=== PATIENT | female | born 1990 | race Hispanic/Latino ===

== ENCOUNTER 2018-03-09 17:29 | Emergency (ER) | payer OTHER ==
[~2018-03-09] VITALS: Ht 152.4 cm; Wt 68.0 kg
[~2018-03-09 17:29] MED LIST: KEPPRA500 MG PO; LAMICTAL25 MG PO; Z.0.ZONEGRAN100 MG PO
--- OUTSIDE RECORDS SUMMARY | 2018-03-09 17:32 | XMS REPORT ---
Author Author [facility] Address Unknown Phone Unavailable Care Team Providers Care Principal Java Developer Name Role Phone Unavailable Unavailable Payers Payer Name Policy Type Policy Number Effective Date Expiration Date Problems This patient has no known problems. Allergies, Adverse Reactions, Alerts Allergy Name Allergy Type Status Severity Reaction(s) Onset Date Inactive Date Treating Clinician Comments Penicillins DA Active SV 2018-03-09 00:00:00 Penicillins DA Active SV 2017-04-16 00:00:00 Medications This patient has no known medications.
--- OUTSIDE RECORDS SUMMARY | 2018-03-09 17:32 | XMS REPORT | Continuity of Care Document ---
Author Author [facility] Interface Address Unknown Phone Unavailable Problems Problem Status Onset Date Classification Date Reported Comments Source M54.5 - LOW BACK PAIN Active 12/19/2014 JERONIMO Faulkner Medications Medication Details Route Status Patient Instructions Ordering Provider Order Date Source Allergies, Adverse Reactions, Alerts Substance Category Reaction Severity Reaction type Status Date Reported Comments Source Immunizations Immunization Date Given Site Status Last Updated Comments Source Results Order Name Results Value Reference Range Date Interpretation Comments Source Spine lumbar 2 or 3 views DX Spine lumbar 2 or 3 views DX EXAM: Spine lumbar AP lateral HISTORY: M54.5 Low back pain COMPARISON: None AP alignment is normal. There is no evidence of vertebral body or disc space height loss. No fracture is seen. IMPRESSION: No acute abnormality. 12/19/2014 - - Read by: Jose Luis Dumont MD Dictated Date/time: 12/19/14 17:02 Electronically Signed by: Jose Luis Dumont MD 12/19/14 17:03 FINAL REPORT KAREN Faulkner Vital Signs Vital Sign Value Date Comments Source Encounters Location Location Details Encounter Type Encounter Number Reason For Visit Attending Provider ADM Date DC Date Status Source [facility] [place] [facility] [id number] Rose Marie Tuesday12/19/2014 12/20/2014 JERONIMO Faulkner Procedures Procedure Code Date Perfomer Comments Source
--- OUTSIDE RECORDS SUMMARY | 2018-03-09 17:32 | XMS REPORT | Summary of Care ---
Author Author [facility] [place] Organization [facility] [place] Address Unknown Phone Unavailable Encounter Erumntr_heather(FIN) [id number] Date(s): 12/19/14 - 12/19/14 [facility] [place] [address] [place] [address]- [facility] [phone] Discharge Disposition: Home Attending Physician: Rose Marie Perales MD Vital Signs No data available for this section Problem List No data available for this section Allergies, Adverse Reactions, Alerts No data available for this section Medications No data available for this section Results No data available for this section Immunizations No data available for this section Procedures No data available for this section Social History No data available for this section Assessment and Plan No data available for this section
[2018-03-09] MEDS ORDERED: KETOROLAC TROMETHAMINE 60 MG/2 ML VIAL IM ONE (17:45)
[2018-03-09] MEDS ORDERED: LIDOCAINE 5% PATCH TP SCH (17:45)
--- NOTE | 2018-03-09 18:24 | Diagnostic Imaging Report ---
Exam: Right rib series with PA chest History: Right-sided rib pain, no history of trauma Comparison: None. Findings: There is normal bone mineralization. No acute, displaced fracture or dislocation. No lytic or expansile lesion. Lungs are clear. No consolidation or effusion. Cardiomediastinal silhouette is unremarkable. Pulmonary vasculature is normal. Impression: 1. No acute abnormalities. Signed by: Dr. Guero Beard M.D. on 03/09/2018 6:20 PM
[2018-03-09] MEDS ORDERED: LIDOPATCH1 EACH TOP (18:46)
[2018-03-09 19:13] VITALS: BP 112/69
== END 2018-03-09 19:20 | disposition home or self-care (01) ==
LOC: ER 17:29
DX: R07.89 Other chest pain (principal)
CPT/HCPCS: 71101; 99283; J1885